=== PATIENT | male | born 1960 | race Caucasian/White ===

== ENCOUNTER → 2020-05-02 09:14 | Outpatient (BNVA) | payer MEDICARE, SELFPAY | PROVIDERS: Family Provider Family Medicine; PCP Family Medicine; Visit Provider Internal Medicine Rheumatology | DX: M06.00 Rheumatoid arthritis without rheumatoid factor, unspecified site (principal); Z11.59 Encounter for screening for other viral diseases; Z79.899 Other long term (current) drug therapy; Z11.1 Encounter for screening for respiratory tuberculosis; E11.9 Type 2 diabetes mellitus without complications; B35.1 Tinea unguium; Z79.84 Long term (current) use of oral hypoglycemic drugs; R21 Rash and other nonspecific skin eruption; Z87.891 Personal history of nicotine dependence | CPT/HCPCS: 36415; 80076; 82306; 82565; 85651; 86140; 86480; 86704; 86803; 86812; 87340; 99214 ==

== ENCOUNTER 2020-05-03 12:56 | Outpatient (CLI) | payer MEDICARE, SELFPAY ==
--- NOTE | 2020-05-03 13:00 | XR_ITS ---
WS: [id number] EXAM: LEFT HAND: 3 VIEWS DATE OF EXAMINATION: 05/03/2020, 1348 hours COMPARISON: None. HISTORY: Patient is 60 years old with a history of rheumatoid arthritis. Complaining of hand pain. FINDINGS: There are findings of old fracture fixation involving the distal radius with ulnar sided plate and sc rews in place. There appears to be resection of the distal ulna. 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 Slight changes of osteoarthritis are seen at th e triscaphe articulation and well as the base of the thumb. Minimal changes of arthritis metacarpopha langeal joint of the second finger as well as minimal changes of arthritis scattered in the interphal angeal joints of the hand. No erosions are identified. No soft tissue abnormality demonstrated. XR/XR hand LT min 3V* [id number] IMPRESSION: Posttraumatic deformity involving the distal forearm as described. Osteoarthrit is changes within the hand and wrist as described. No acute bony abnormality.
--- NOTE | 2020-05-03 13:00 | XR_ITS ---
WS: [id number] EXAM: RIGHT HAND: 3 VIEWS DATE OF EXAMINATION: 05/03/2020, 1350 hours COMPARISON: None. HISTORY: Patient is 60 years old with a history of rheumatoid arthritis. Complaining of hand pain. FINDINGS: Bone density is normal in appearance. There are slight changes of arthritis at the triscaphe articula tion and first carpometacarpal dictation. Mild changes of arthritis are seen in the metacarpal phalan geal joint of the thumb as well as and interphalangeal joint of the thumb. Slight degenerative change s seen in the second, third and fourth metacarpal phalangeal joints as well as scattered changes of a rthritis within the interphalangeal joints of fingers. I do not see changes of erosions. No extensive soft tissue abnormality is seen. I presume there is a fingernail fungal infection involving the thir d finger with elevation of the nail bed. XR/XR hand RT min 3V* [id number] IMPRESSION: Scattered changes of arthritis which are more along the lines of osteoarthritis than rheumatoid arthritis. Arthritis in the metacarpal phalangeal joints is pr esumably related to calcium pyrophosphate disease.
--- NOTE | 2020-05-03 13:30 | XR_ITS ---
WS: [id number] EXAM: LEFT FOOT: 3 VIEWS DATE OF EXAMINATION: 05/03/2020, 1352 hours COMPARISON: None. HISTORY: 60 years old with a history of rheumatoid arthritis. Complaining of foot pain. FINDINGS: Bone density is normal in appearance. There are mild changes of osteoarthritis involving the first me tatarsal phalangeal joint. Minimal changes of arthritis in the hindfoot/midfoot articulations especia lly between the calcaneus and cuboid and at the talonavicular and navicular cuneiform articulations. No fracture, lytic or blastic process. No marginal erosions. Heel spur plantar aponeurosis insertion. No soft tissue abnormality noted. XR/XR foot LT min 3V* [id number] IMPRESSION: Scattered changes of osteoarthritis. No acute abnormality.
--- NOTE | 2020-05-03 13:30 | XR_ITS ---
WS: [id number] EXAM: RIGHT FOOT: 3 VIEWS DATE OF EXAMINATION: 05/03/2020, 1354 hours COMPARISON: None. HISTORY: 60 years old with history of rheumatoid arthritis. Complaining of foot pain. FINDINGS: Bone density is normal in appearance. There are findings of osteoarthritis at the first metatarsal ph alangeal joint with marginal spurring mainly laterally. Slight arthritis at the calcaneocuboid articu lation as well as at the talonavicular articulation and minimally at the navicular cuneiform articula tion. Heel spur plantar aponeurosis insertion. No soft tissue abnormality demonstrated. No acute bony abnormality noted. XR/XR foot RT min 3V* [id number] IMPRESSION: Imaging findings of osteoarthritis. No acute abnormality.
--- NOTE | 2020-05-03 13:30 | XR_ITS ---
WS: [id number] EXAM: Chest: PA and lateral DATE OF EXAMINATION: 05/03/2020, 1345 hours COMPARISON: Chest x-ray from 10/18/2017. HISTORY: Patient is 60 years old with history of rheumatoid arthritis. Bilateral hand and feet pain. Occasiona l shortness of breath. FINDINGS: The heart size is normal. The mediastinal contours are normal. Pulmonary vascularity is within norm al limits. The lungs are clear. No effusion, or pneumothorax. Bone density is normal in appearance. XR/XR chest 2V* [id number] IMPRESSION: NO ACUTE PULMONARY DISEASE.
== END 2020-05-03 12:57 | disposition home or self-care (01) ==
LOC: RADWPI 13:03
PROVIDERS: Family Provider Family Medicine; PCP Family Medicine; Visit Provider Internal Medicine Rheumatology
DX: M06.00 Rheumatoid arthritis without rheumatoid factor, unspecified site (principal); M79.672 Pain in left foot; M79.671 Pain in right foot; R06.02 Shortness of breath; M79.642 Pain in left hand; M79.641 Pain in right hand
CPT/HCPCS: 71046; 73130; 73630

== ENCOUNTER → 2020-06-06 08:57 | Outpatient (BNVA) | payer MEDICARE, SELFPAY | PROVIDERS: Family Provider Family Medicine; PCP Family Medicine; Visit Provider Internal Medicine Rheumatology | DX: M06.00 Rheumatoid arthritis without rheumatoid factor, unspecified site (principal); B35.1 Tinea unguium; E11.9 Type 2 diabetes mellitus without complications; Z79.899 Other long term (current) drug therapy; F17.210 Nicotine dependence, cigarettes, uncomplicated; Z79.52 Long term (current) use of systemic steroids; Z79.84 Long term (current) use of oral hypoglycemic drugs | CPT/HCPCS: 99214 ==

== ENCOUNTER → 2020-07-04 09:01 | Outpatient (BNVA) | payer MEDICARE, SELFPAY | PROVIDERS: Family Provider Family Medicine; PCP Family Medicine; Visit Provider Internal Medicine Rheumatology | DX: Z79.899 Other long term (current) drug therapy (principal) | CPT/HCPCS: 36415; 80076; 82565; 85025; 85651; 86140 ==

== ENCOUNTER 2020-09-10 09:23 | Outpatient (CLI) | payer MEDICARE, SELFPAY ==
[2020-09-10 09:44] LABS: Basophils # 0.1 10^3/uL (0.0-0.1); Basophils % 0.7 %; Eosinophils # 0.2 10^3/uL (0.0-0.8); Eosinophils % 2.4 %; Hematocrit 47.4 % (42.0-52.0); Hemoglobin 15.6 g/dL (11.7-16.6); Lymphocytes # 1.6 10^3/uL (0.8-4.8); Lymphocytes % 18.6 %; Mean Corpuscular HGB Conc 32.9 g/dL (30.0-36.0); Mean Corpuscular Hemoglobin 29.3 pg (28.0-34.0); Mean Corpuscular Volume 88.9 fL (80-94); Mean Platelet Volume 9.4 fL (7.4-10.4); Monocytes # 0.7 10^3/uL (0.2-0.9); Neutrophils # 6.11 10^3/uL (1.8-7.7); Nucleated Red Blood Cells % 0 %; Platelet Count 208 10^3/cmm (130-400); Red Blood Count 5.33 10^6/uL (4.1-5.3); Red Cell Distribution Width 13.2 % (12.1-15.1); White Blood Count 8.7 10^3/uL (4.0-10.0)
[2020-09-10 11:33] LABS: Alanine Aminotransferase 10 U/L (0-41); Albumin Level 3.8 g/dL (3.5-5.2); Alkaline Phosphatase 87 IU/L (40-130); Aspartate Amino Transferase 8 U/L (0-40); Blood Urea Nitrogen 19 mg/dL (6-20); Calcium 8.9 mg/dL (8.5-10.5); Carbon Dioxide 25 mmol/L (22-29); Chloride 97 mmol/L (98-107); Globulin 2.8 g/dL (1.3-4.6); Glomerular Filtration Rate 98.9 mL/min (90-130); Glucose 334 mg/dL (65-115); Osmolality Calculated 289 mOsm/kg (285-295); Sodium 132 mmol/L (136-145); Total Bilirubin 0.4 mg/dL (0.15-1.2); Total Protein 6.6 g/dL (6.6-8.7)
== END 2020-09-10 09:24 | disposition home or self-care (01) ==
LOC: LAB 09:29
PROVIDERS: PCP Family Medicine; Visit Provider Dermatology
DX: B35.1 Tinea unguium (principal); Z79.899 Other long term (current) drug therapy
CPT/HCPCS: 36415; 80053; 85025

== ENCOUNTER → 2020-10-07 14:03 | Outpatient (BNVA) | payer MEDICARE, SELFPAY | PROVIDERS: PCP Family Medicine; Visit Provider Internal Medicine Rheumatology | DX: M06.00 Rheumatoid arthritis without rheumatoid factor, unspecified site (principal); Z79.899 Other long term (current) drug therapy; M15.9 Polyosteoarthritis, unspecified; B35.1 Tinea unguium; R21 Rash and other nonspecific skin eruption; E11.9 Type 2 diabetes mellitus without complications; Z79.84 Long term (current) use of oral hypoglycemic drugs; F17.210 Nicotine dependence, cigarettes, uncomplicated | CPT/HCPCS: 99214 ==

== ENCOUNTER → 2020-11-13 08:41 | Outpatient (BNVA) | payer MEDICARE, SELFPAY | PROVIDERS: PCP Family Medicine; Visit Provider Internal Medicine Rheumatology | DX: Z79.899 Other long term (current) drug therapy (principal); M19.90 Unspecified osteoarthritis, unspecified site | CPT/HCPCS: 36415; 80076; 82565; 85025; 86140 ==

== ENCOUNTER → 2021-02-12 08:49 | Outpatient (BNVA) | payer MEDICARE, SELFPAY | PROVIDERS: PCP Family Medicine; Visit Provider Internal Medicine Rheumatology | DX: M06.00 Rheumatoid arthritis without rheumatoid factor, unspecified site (principal); B35.1 Tinea unguium; Z79.899 Other long term (current) drug therapy; Z79.52 Long term (current) use of systemic steroids; M15.9 Polyosteoarthritis, unspecified; E11.9 Type 2 diabetes mellitus without complications; Z79.84 Long term (current) use of oral hypoglycemic drugs; F17.210 Nicotine dependence, cigarettes, uncomplicated | CPT/HCPCS: 99214 ==

== ENCOUNTER → 2021-06-30 14:27 | Outpatient (BNVA) | payer MEDICARE, SELFPAY | PROVIDERS: PCP Family Medicine; Visit Provider Internal Medicine Rheumatology | DX: M06.09 Rheumatoid arthritis without rheumatoid factor, multiple sites (principal); M15.9 Polyosteoarthritis, unspecified; B35.1 Tinea unguium; Z79.899 Other long term (current) drug therapy; Z79.52 Long term (current) use of systemic steroids; E11.9 Type 2 diabetes mellitus without complications; Z79.84 Long term (current) use of oral hypoglycemic drugs; Z71.89 Other specified counseling | CPT/HCPCS: 99214 ==

== ENCOUNTER 2021-09-06 00:06 | Emergency (ER) | payer MEDICARE, SELFPAY ==
[2021-09-06 00:12] VITALS: PULSE 0; BMI 34.0
--- NOTE | 2021-09-06 00:15 | PC.NURSE ---
0001 - arrived to ER and asystole 0003 - 1 epi given IVP through right AC 0005 - asystole; bicarbonate amp given right AC IVP 0006 - 1 epi given 0007 - pulse check; asystole 0008 - time of called by Dr. Tuttle
--- NOTE | 2021-09-06 00:25 | PC.NURSE ---
patient received via EMS stretcher, intubated with OG tube in place. both tubes noted with brown substance on them. IV placement to Left AC and IO ro left lower leg all placed by EMS. arrival with CPR in progress. Life pack pads placed and CPR continued. EMS reports patient has been vomiting for days and today it turned colors and family states he was going to go to hospital tomorrow.
--- NOTE | 2021-09-06 02:24 | PC.NURSE ---
Pt at 0008, family present. Answered questions from family and given time to be with the patient. [facility] notified and released, waiting for [facility] to release. Pt taken to the [facility] at [phone].
--- NOTE | 2021-09-06 17:50 | ED_ITS ---
HPI - CPR General: Chief Complaint: Cardiac Arrest/CPR Stated Complaint: CODE BLUE Time Seen by Provider: 09/06/21 00:15 History of Present Illness: MD complaint: found unresponsive and stopped breathing Onset (ago): minute(s) (60) Timing confirmed by: spouse and family member Place: home Bystander CPR performed: Yes (by report) Initial findings in the field: unresponsive, no respirations, no pulse and other rhythm (asystole initially) ROSC in the field: Yes (briefly, then asystole again) Associated injuries: No Associated symptoms: abdominal pain, sweating and other (vomiting) Treatments prior to arrival: intubation, chest compressions, defibrillated shocks # (1 for vfib) and epinephrine mgs # (10mg) Review of Systems General: Reports: ROS unobtainable due to medical condition GI: Reports: abdominal pain, nausea, vomiting and coffee ground emesis ( brown vomit according to family) PFSH ED PFSH: Medical History (Updated 09/07/21 @ 00:30 by Khanh Tuttle DO) Cervical disc disorder with myelopathy of mid-cervical region Chronic steroid use Diabetes Displacement of lumbar disc with radiculopathy Diverticulitis Encounter for screening for other viral diseases High risk medication use Hypertension Immunization counseling Long-term use of high-risk medication Onychomycosis Rheumatoid arthritis with negative rheumatoid factor Spinal stenosis LUMBAR M48.061 AND CERVICAL M48.02 Tobacco use disorder Surgical History History of bilateral knee replacement History of carpal tunnel surgery of right wrist (~11/11/15) DR DAMON Hx of knee surgery LT KNEE ARTHROSCOPY 2012 HX LT KNEE REPLACEMENT, HX RT KNEE REPLACEMENT 2010 Hx of lumbar discectomy (~08/22/18) Dr. Nayana Damon: Right L3-L4, L4-L5 hemilaminotomy/foraminotomy/discectomy Family History Other Cancer Chronic kidney disease (CKD) Diabetes Lupus Rheumatoid arthritis Denies family history of CAD (coronary artery disease) Hyperlipidemia Lung disease Hypertension Stroke Social History Alcohol intake: never History of recent travel: No Physical Exam Const: ORIENTATION/CONSCIOUSNESS: Yes Other orientation findings (unresponsive) HENMT: COMMON NORMALS: normocephalic and atraumatic HEAD & SCALP: normocephalic and atraumatic Eye: PUPIL: Yes Dilated pupils and Yes Fixed pupils Chest: COMMONS NORMALS: normal inspection of the chest Resp: EFFORT & INSPECTION: Yes symmetric chest movement (with bag respirations.) GI: COMMON NORMALS: Soft to palpation INSPECTION: Yes abdominal distension PALPATION: Yes Soft to palpation Neuro: FELISHA COMA SCALE: document GCS findings [place] coma scale eye opening: None [place] coma scale verbal response: None [place] coma scale motor response: None [place] coma scale total score: 3 Course Vital Signs: Vital signs: Vital Signs Pulse Rate 0 L 09/06/21 00:12 MDM - Cardiac Arrest/CPR MDM Narrative: Medical decision making narrative: 61-year-old male patient presents in asystole. Further history is taken from his family, his and daughter, who arrived later. He had evidently been sick for a few days with belly pain. He has a history of diverticulitis. He had been vomiting prior to going unresponsive at home. The vomit was brown they say. He had been in a lot of pain, and had been encouraged to go to the hospital by his family. In fact, the last thing he said to his was okay I'll go to the hospital tomorrow . He went unresponsive after EMS was called he was in asystole on arrival. At one point, he was defibrillated. A sinus rhythm was achieved with a pulse in route to the hospital, but pulse was lost again. On arrival, he is in asystole. CPR continued. At least 3 more milligrams of epinephrine was given along with bicarbonate. Breath sounds were equal. He had been intubated in the field with good capnography, and actually good saturations with chest compressions. Pupils were fixed and dilated. After 3 rounds of CPR in the ER, no rhythm changes were noted. The patient had been down well over an hour at this point with no change. Code was called. I informed family of patient's expiration. Critical Care Time Critical Care Time: Critical Care Time: Yes Total Critical Care Time: 35 Attestation: This case had a high probability of a clinically significant, sudden, or life threatening deterioration of this patient's condition which required my full and direct attention, intervention and personal management. This time excludes all procedures. It does include documentation time, counseling time with the family, etc. As the patient was coding on arrival, essentially all time spent was critical care time. 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
== END 2021-09-06 02:30 | disposition expired ==
PROVIDERS: Emergency Provider Emergency Medicine; PCP Family Medicine
DX: I46.9 Cardiac arrest, cause unspecified (principal); E11.9 Type 2 diabetes mellitus without complications; I10 Essential (primary) hypertension
CPT/HCPCS: 99283